=== PATIENT | female | born 1955 | race Caucasian/White ===

== ENCOUNTER 2017-08-04 06:32 | Day surgery (SDC) | payer BC ==
[2017-08-04] MEDS ORDERED: Lactated Ringers 1,000 ML IV SCH (06:45)
[2017-08-04] MEDS ORDERED: Propofol 200 MG/20 ML SDV IV ONE (08:00)
--- NOTE | 2017-08-04 08:31 | PCM.OPNOTE ---
- General Post-Op/Procedure Note Date of Surgery/Procedure: 08/04/17 Operative Procedure(s): c scope wtih bx Findings: cecal polyp Pre Op Diagnosis: screening Post-Op Diagnosis: cecal polyp Anesthesia Technique: MAC Primary Surgeon: Sergio Davis Anesthesia Provider: Ethan Dickerson Pathology: cecal polyp Complications: None Condition: Good Free Text/Narrative:: see dictation #[id number]
--- NOTE | 2017-08-04 09:39 | OR ---
DATE OF OPERATION: 08/04/2017 SURGEON: Sergio Davis MD PROCEDURES PERFORMED: Colonoscopy with cold forceps biopsy. PREOPERATIVE DIAGNOSIS: Need for screening C-scope. POSTOPERATIVE DIAGNOSIS: Cecal polyp. INDICATIONS FOR PROCEDURE: This is a 62-year-old white female who presents for screening colonoscopy. Last one was 10 years ago. She is without complaints. DESCRIPTION OF PROCEDURE: After an excellent IV sedation was administered, digital rectal exam was performed. No marked abnormality was noted. The flexible colonoscope was inserted and advanced without difficulty to the patient's cecum. The prep was excellent. The following findings were noted. Ascending colon, at the cecum, small cecal polyp, biopsied with cold biopsy forceps and sent for permanent. Transverse colon, unremarkable. Descending colon, unremarkable. Sigmoid, unremarkable. Rectum and anus, unremarkable. Colon was deflated as the scope was removed. The patient tolerated the procedure well and was taken to recovery room in a good condition. /[id number] JUAN/SHANNA
== END 2017-08-04 09:47 | disposition home or self-care (01) ==
LOC: FB.SDS 06:32
PROVIDERS: ATTEND Surgery
DX: Z12.11 Encounter for screening for malignant neoplasm of colon (principal); K63.5 Polyp of colon; Z79.899 Other long term (current) drug therapy; Z88.2 Allergy status to sulfonamides
CPT/HCPCS: 45380; 88305; J2704; J7120